=== PATIENT | female | born 1950 | race Caucasian/White ===

== ENCOUNTER → 2018-07-09 | Outpatient (CLI) | payer MEDICARE, SELFPAY ==
[2018-06-03 09:53] VITALS: BMI 33.6
--- NOTE | 2018-07-09 16:20 | PFTCOMP_ITS ---
COMPLETE PULMONARY FUNCTION TEST INTERPRETATION Brief HPI: Patient is a 68 year old female, currently under the care of myself, who presents to [facility] for complete pulmonary function tests secondary to diagnosis of COPD. Respiratory therapist reports good effort and reproducible results. Interpretation: Forced expiration spirometry shows a very severe large airways obstructive ventilatory defect with an FEV1 of 27% predicted. There is no significant bronchodilator response by strict ATS criteria. Spirograms are of good quality and plateau slowly, indicating slowly emptying areas of the lungs. The respiratory flow volume loop shows decreased expiratory flow rates at all lung volumes consistent with airway obstruction. Lung volumes by body plethysmography show an elevated total lung capacity at 5.8 L, 125% predicted. FRC and RV are elevated out of proportion. Lung volume measurements are consistent with hyperinflation and air-trapping. Diffusion capacity by carbon monoxide is decreased at 35% predicted. The airway resistance is elevated. No previous pulmonary function tests were available for review. Impression: Irreversible very severe large airways obstructive ventilatory defect with symmetric reduction diffusion capacity, resulting in air trapping with hyperinflation, and a pattern consistent with advanced COPD.
== END | disposition home or self-care (01) ==
LOC: PSN 09:51
PROVIDERS: Family Provider Family Medicine; PCP Family Medicine; Referring Provider Internal Medicine Critical Care Medicine; Visit Provider Internal Medicine Critical Care Medicine
DX: J44.9 Chronic obstructive pulmonary disease, unspecified (principal)
CPT/HCPCS: 94060; 94726; 94729

== ENCOUNTER → 2018-07-13 | Outpatient (CLI) | payer MEDICARE, SELFPAY ==
[2018-06-03 09:53] VITALS: BMI 33.6
[2018-07-13 12:55] VITALS: PULSE 116; PULSE 118; PULSE 119; PULSE 136; PULSE 139; PULSE 140; PULSE 141; PULSE 145; O2SAT 84; O2SAT 86; O2SAT 88; O2SAT 89; O2SAT 91; O2SAT 92; O2SAT 94
--- NOTE | 2018-07-13 12:58 | CPS ---
Patient came in on their own O2 from home at 2 lpm. Room Air SpO2 82%. Started testing on 2 lpm O2.
--- NOTE | 2018-07-14 08:44 | PCM.PSN.6M ---
PSN 6 Minute Walk Test - 6 Minute Walk Test 6 Minute Walk Test: 6 Minute Walk Test PSN:6-Minute Walk Test Start: 07/13/18 12:54 Freq: Status: Active Protocol: [id number].[id number] Document 07/13/18 12:55 [email or web address] (Rec: 07/13/18 12:58 BRENT [id number]) 6 Minute Walk Test Date Performed 07/13/18 Time Performed 12:30 Height 5 ft 3 in Weight: 190 lb Weight in Pounds 190.[address]: Anant Shetty Assistive device used: None Pre-test Oxygen Flow Rate (L/min) (L/min) 2 Oxygen Delivery Method Nasal Cannula Pulse Ox (%) 91 Pulse Rate (60-100 beats/min) 116 H Dyspnea Alber Scale (0-10) 0 Exertion Alber Scale (6-20) 6 1st minute Oxygen Flow Rate (L/min) (L/min) 2 Oxygen Delivery Method Nasal Cannula Pulse Ox (%) 86 Pulse Rate (60-100 beats/min) 118 H 2nd minute Oxygen Flow Rate (L/min) (L/min) 3 Oxygen Delivery Method Nasal Cannula Pulse Ox (%) 84 Pulse Rate (60-100 beats/min) 140 H 3rd minute Oxygen Flow Rate (L/min) (L/min) 4 Oxygen Delivery Method Nasal Cannula Pulse Ox (%) 92 Pulse Rate (60-100 beats/min) 136 H 4th minute Oxygen Flow Rate (L/min) (L/min) 4 Oxygen Delivery Method Nasal Cannula Pulse Ox (%) 89 Pulse Rate (60-100 beats/min) 139 H 5th minute Oxygen Flow Rate (L/min) (L/min) 4 Oxygen Delivery Method Nasal Cannula Pulse Ox (%) 89 Pulse Rate (60-100 beats/min) 141 H Number of Rests Taken 1 6th minute Oxygen Flow Rate (L/min) (L/min) 4 Oxygen Delivery Method Nasal Cannula Pulse Ox (%) 88 Pulse Rate (60-100 beats/min) 145 H Dyspnea Alber Scale (0-10) 4 Exertion Alber Scale (6-20) 14 Post-test Oxygen Flow Rate (L/min) (L/min) 4 Oxygen Delivery Method Nasal Cannula Pulse Ox (%) 94 Pulse Rate (60-100 beats/min) 119 H Full Laps Walked 10 Partial Lap, Number of Tiles Walked 35 Total Distance Walked (ft) 625 07/13/18 12:58 Cardiopulmonary Services by Mayte Magana Patient came in on their own O2 from home at 2 lpm. Room Air SpO2 82%. Started testing on 2 lpm O2. Initialized on 07/13/18 12:58 - END OF NOTE - Interpretation Interpretation: The patient ambulated 625 feet over the course of 6 minutes without assistive devices or breaks. Pretesting oxygen saturation was noted to be 82% on room air. 2 L/min of supplemental oxygen was applied prior to the initiation of testing. With ambulation, the patient desaturated on several occasions requiring an escalation in her supplemental oxygen flow rate to 4 L/min. Of note, the patient was tachycardic throughout the entire test. This testing indicated both the presence of impaired walk distance and significant resting and exertional oxygen desaturation. - Recommendations Recommendations: 2 L/min of supplemental oxygen should be utilized at rest. 4 L/min of supplemental oxygen should be utilized with exertion. Close interval follow-up is recommended.
== END | disposition home or self-care (01) ==
PROVIDERS: Family Provider Family Medicine; PCP Family Medicine; Referring Provider Internal Medicine Critical Care Medicine; Visit Provider Internal Medicine Critical Care Medicine
DX: J44.9 Chronic obstructive pulmonary disease, unspecified (principal)
CPT/HCPCS: 94618